=== PATIENT | female | born 1975 | race African-American/Black ===

== ENCOUNTER 2025-02-02 11:22 | Inpatient (IN) | payer BC, OTHER ==
[~2025-02-02] VITALS: Ht 170.2 cm; Wt 66.7 kg
[2025-02-02] MEDS ORDERED: LIPA1CAP21 PO ×2 (12:03→17:42)
[2025-02-02] MEDS ORDERED: ERGO500040 PO (12:03)
[2025-02-02] MEDS ORDERED: HYDROMORPHONE 1 MG/1 ML DISP.SYRIN ONE ×2 (12:21→15:09)
[2025-02-02] MEDS ORDERED: diphenhydrAMINE 50 MG/1 ML VIAL ONE (12:21)
[2025-02-02 12:28] LABS: PLATELET COUNT (AUTO) 119 K/uL (179-408); RED BLOOD CELL COUNT(AUTO) 4.13 MIL/uL (3.63-4.92); RED CELL DISTRIBUTION WIDTH 14.6 % (12.3-17.7); WHITE BLOOD COUNT (AUTO) 6.3 K/uL (3.8-11.8)
[2025-02-02] MEDS: HYDROMORPHONE 1 MG/1 ML DISP.SYRIN IV ONE ×2 (12:28→15:14)
[2025-02-02] MEDS: diphenhydrAMINE 50 MG/1 ML VIAL IV ONE (12:28)
[2025-02-02 12:40] LABS: CREATININE 1.0 mg/dL (0.6-1.3); SODIUM SERUM 140 mmol/L (136-145); UREA NITROGEN, BLOOD 16 mg/dL (7-18)
[2025-02-02 12:46] LABS: ASPARTATE AMINOTRANSFERASE 25 U/L (15-37); TOTAL PROTEIN, SERUM 8.1 g/dL (6.4-8.2)
[2025-02-02] MEDS: IV NORMAL SALINE 1000 ML BAG IV ONE (13:31)
[2025-02-02] MEDS ORDERED: ONDANSETRON 4 MG/2 ML VIAL ONE (15:09)
[2025-02-02] MEDS: ONDANSETRON 4 MG/2 ML VIAL IV ONE (15:14)
[2025-02-02 15:15] LABS: *BILIRUBIN,URIN 1+ (NEGATIVE); *BLOOD, URINE NEGATIVE (NEGATIVE); *CLARITY,URINE CLEAR (CLEAR); *KETONES,URINE 2+ (NEGATIVE); *PROTEIN,URINE TRACE (NEGATIVE); *UROBILINOGEN,URINE 0.2 E.U./dl (NORMAL); LEUKOCYTE ESTERASE ,URINE NEGATIVE (NEGATIVE); NITRITE, URINE NEGATIVE (NEGATIVE); UGLUCOSE NEGATIVE (NEGATIVE)
[2025-02-02 15:18] LABS: *COLOR,URINE DARK YELLOW (YELLOW)
[2025-02-02 15:28] LABS: SQUAMOUS EPITHELIAL CELL,UR FEW /HPF (NONE SEEN)
[2025-02-02] MEDS ORDERED: MAGNESIUM HYDROXIDE 30 ML LIQUID UDC PO PRN (15:30)
[2025-02-02] MEDS ORDERED: ONDANSETRON 4 MG/2 ML VIAL IV PRN (15:30)
[2025-02-02 15:46] LABS: *URINE HCG, QUAL NEGATIVE (NEGATIVE)
[2025-02-02 16:00] VITALS: BP 119/68; TEMP 98.3; O2SAT 99
[2025-02-02] MEDS ORDERED: DOXY25TA60 PO (17:44)
[2025-02-02] MEDS: IV LACTATED RINGERS SOLUTION 1,000 ML IV PRN (17:57)
[2025-02-02 19:00] VITALS: BP 107/63; TEMP 98; O2SAT 96
[2025-02-02] MEDS ORDERED: PROTEASE PO PRN (21:00)
[2025-02-02] MEDS ORDERED: LIPASE PO PRN (21:00)
[2025-02-02] MEDS ORDERED: AMYLASE PO PRN (21:00)
[2025-02-02] MEDS: HYDROMORPHONE 1 MG/1 ML DISP.SYRIN IV PRN (22:20)
[2025-02-03 06:00] VITALS: BP 112/62; TEMP 98.7; O2SAT 98
[2025-02-03 06:57] LABS: PLATELET COUNT (AUTO) 104 K/uL (179-408); RED BLOOD CELL COUNT(AUTO) 3.61 MIL/uL (3.63-4.92); RED CELL DISTRIBUTION WIDTH 13.7 % (12.3-17.7); WHITE BLOOD COUNT (AUTO) 5.9 K/uL (3.8-11.8)
[2025-02-03 07:12] LABS: CREATININE 0.7 mg/dL (0.6-1.3); SODIUM SERUM 138 mmol/L (136-145); UREA NITROGEN, BLOOD 9 mg/dL (7-18)
[2025-02-03] MEDS: LIPASE/PROTEASE/AMYLASE 4200 UNITS CAPSULE.DR PO ONE (08:00)
[2025-02-03] MEDS: PANTOPRAZOLE SODIUM 40 MG VIAL IV SCH (09:33)
[2025-02-03] MEDS: MAGNESIUM SULFATE/D5W 100 ML IV SCH (09:33)
[2025-02-03 11:07] LABS: CANCER AG, 125 11.2 U/mL (0.0-38.1); CANCER ANTIGEN 15-3 23.9 U/mL (0.0-25.0); CARBOHYDRATE ANTIGEN, 19-9 17.0 U/mL (0-35); CARCINOEMBRYONIC AG (CEA) 11.5 ng/mL (0.0-4.7)
[2025-02-03] MEDS ORDERED: LIPASE PO SCH (12:00)
[2025-02-03] MEDS ORDERED: AMYLASE PO SCH (12:00)
[2025-02-03] MEDS ORDERED: PROTEASE PO SCH (12:00)
[2025-02-03 12:15] VITALS: BP 110/64; TEMP 99.3; O2SAT 97
[2025-02-03 16:34] VITALS: BP 108/65; TEMP 98.6; O2SAT 97
[2025-02-03 20:20] VITALS: BP 113/70; TEMP 99.3; O2SAT 99
[2025-02-03] MEDS: ACETAMINOPHEN 325 MG TABLET PO PRN (21:25)
[2025-02-04 04:07] LABS: HEPATITIS B CORE AB, IgM Negative (Negative); HEPATITIS B CORE AB, TOTAL Negative (Negative); HEPATITIS B SURFACE AB, QUAL Non Reactive (.); HEPATITIS B SURFACE AG Negative (Negative); HEPATITIS C VIRUS ANTIBODY Non Reactive (Non Reactive)
[2025-02-04 05:51] VITALS: BP 109/71; TEMP 98.9; O2SAT 97
[2025-02-04 06:58] LABS: PLATELET COUNT (AUTO) 101 K/uL (179-408); RED BLOOD CELL COUNT(AUTO) 3.56 MIL/uL (3.63-4.92); RED CELL DISTRIBUTION WIDTH 13.9 % (12.3-17.7); WHITE BLOOD COUNT (AUTO) 4.4 K/uL (3.8-11.8)
[2025-02-04 07:59] LABS: ASPARTATE AMINOTRANSFERASE 10.0 U/L (15-37); CREATININE 0.9 mg/dL (0.6-1.3); SODIUM SERUM 141.0 mmol/L (136-145); TOTAL PROTEIN, SERUM 6.4 g/dL (6.4-8.2); UREA NITROGEN, BLOOD 13.0 mg/dL (7-18)
[2025-02-04] MEDS ORDERED: ZENPEP 40000 UNIT PO PRN (08:15)
[2025-02-04] MEDS: ZENPEP 40000 UNIT PO SCH (08:34)
[2025-02-04] MEDS ORDERED: TRAMADOL HCL 50 MG TABLET PO PRN (11:00)
[2025-02-04 12:00] VITALS: BP 120/63; TEMP 98.3; O2SAT 93
[2025-02-04] MEDS: OXYCODONE/APAP 5-325 MG TABLET PO PRN (12:57)
[2025-02-04 16:00] VITALS: BP 108/74; TEMP 98.5; O2SAT 99
[2025-02-04] MEDS ORDERED: OXYC-128 PO (18:28)
[2025-02-04] MEDS ORDERED: ONDA4TAB11 PO (18:29)
[2025-02-05] MEDS ORDERED: PANTOPRAZOLE SODIUM 40 MG TABLET.DR PO SCH (07:00)
== END 2025-02-04 20:25 | disposition home or self-care (01) | DRG 440 ==
LOC: ER 11:22 → MEDSURG3 15:35
PROVIDERS: ADMIT Nurse Practitioner Family; ATTEND Nurse Practitioner Family
DX: K85.90 Acute pancreatitis without necrosis or infection, unspecified (principal); K86.1 Other chronic pancreatitis; D69.6 Thrombocytopenia, unspecified; N70.11 Chronic salpingitis; N99.4 Postprocedural pelvic peritoneal adhesions; K62.9 Disease of anus and rectum, unspecified; R97.0 Elevated carcinoembryonic antigen [CEA]; Z90.49 Acquired absence of other specified parts of digestive tract
CPT/HCPCS: 36415; 71250; 82378; 83690; 83735; 84100; 84478; 84484; 84703; 85025; 85651; 85730; 86300; 86301; 86704; 86705; 86706; 86803; 87340; 87350; 87521; A4606; A4663; G0378; J1171; J1200; J2405; J2470; J3475; J7040; J7120